=== PATIENT | male | born 1945 | race Caucasian/White ===

== ENCOUNTER 2021-11-12 13:00 | Outpatient (NON) | payer MEDICARE, SELFPAY | END 2021-11-12 13:01 | disposition home or self-care (01) | LOC: ANHLAB 11-15 07:46 | PROVIDERS: PCP Family Medicine; Visit Provider Nurse Practitioner | DX: L57.0 Actinic keratosis (principal) | CPT/HCPCS: 88305 ==

== ENCOUNTER 2021-12-17 07:00 | Outpatient (NON) | payer MEDICARE, SELFPAY | END 2021-12-17 07:01 | disposition home or self-care (01) | LOC: ANHLAB 12-18 16:54 | PROVIDERS: PCP Family Medicine; Visit Provider Nurse Practitioner | DX: C44.622 Squamous cell carcinoma of skin of right upper limb, including shoulder (principal); R47.02 Dysphasia | CPT/HCPCS: 88305 ==